=== PATIENT | female | born 1955 | race Caucasian/White ===

== ENCOUNTER → 2018-10-07 07:52 | Day surgery (SDC) | payer BC ==
[~2018-10-07 07:52] MED LIST: Buffered Lidocaine 1% SYRIN* 1 ML/SYRINGE INTRADERM ONE; Bupivacaine 0.5% SDV PF* 30ML VIAL ONE; Bupivacaine 0.5%* 50 ML VIAL ONE; Dexamethasone TAB* 4 MG ONE; Dexamethasone TAB* 4 MG PO ONE; DiMENhydriNATE IV* 50 MG/ML VIAL IV PUSH PRN; DiMENhydriNATE IV* 50 MG/ML VIAL ONE; Famotidine IV* 10 MG/ML 2 ML (20 mg) IV ONE; Famotidine IV* 10 MG/ML 2 ML (20 mg) ONE; HYDROmorphone INJ1* 1 MG/ML SYRINGE ONE; KETAMINE HCL* 50 MG/ML 10 ML VIAL ONE; Ketorolac INJ* 30 MG/ML 1 ML VIAL ONE; Lactated Ringers 1000 ML Bag* 1,000 ML IV SCH; Midazolam* 1 MG/ML 10 ML VIAL (10 MG) ONE; Naloxone* 0.4 MG/ML 1 ML VIAL IV PRN; Ondansetron ODT TAB* 4 MG ONE; Ondansetron TAB* 4 MG PO ONE; PROCHLORPERAZINE INJ 5 MG/ML 2 ML VIAL IV PRN; PROCHLORPERAZINE INJ 5 MG/ML 2 ML VIAL ONE; Propofol* 1,000 MG/100 ML BTL ONE; Propofol* 10 MG/ML 20 ML BTL ONE; Propofol* 500 MG/50 ML BTL ONE; Scopolamine 1.5 mg* PATCH ONE; Scopolamine 1.5 mg* PATCH TRANSDERM SCH; Scopolamine PATCH Remove* 1 NOTE MISC PATCH OFF SCH; ceFAZolin 2 GM PREMIX in ORs 2 GM/50 ML BAG IVPB ONE; fentaNYL* 50 MCG/ML 2 ML VIAL (100 MCG VIAL) IV PRN; fentaNYL* 50 MCG/ML 2 ML VIAL (100 MCG VIAL) ONE; oxyCODONE/Acetamin 5/325 MG* TAB ONE
[2018-10-07] MEDS: oxyCODONE/Acetamin 5/325 MG* TAB PO PRN (13:25)
[2018-10-07] MEDS: HYDROmorphone INJ1* 1 MG/ML SYRINGE IV PRN ×4 (13:28→14:30)
--- NOTE | 2018-10-07 13:51 | OP ---
Operative Report - Blank - Operative Report Date of Operation: 10/07/18 Note: PATIENT: Alicja Tovar DATE OF : 1955 DATE OF SURGERY: 10/07/2018 SURGEON: Reyes Botello MD MS [employer] SERV[employer] DEVELOPER: LORENZO Bell, whos assistance was necessary for positioning, retraction, help with instrumentation, and closure. ANESTHESIOLOGIST: Dr. 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 Right midfoot fusion of the 2nd TMT joint 2. Right Silver bunionectomy 3. Right 1st MTP joint fusion ANESTHESIA: General + block IMPLANTS: Arthrex staple, plate, 4.0mm cannulated screws TOURNIQUET TIME: Less than 2 hours with a well-padded thigh tourniquet at 250 mmHg SPECIMENS: none ESTIMATED BLOOD LOSS: minimal COMPLICATIONS: none STATUS: Stable from the operating room to the recovery room and then home. INDICATIONS FOR PROCEDURE: Alicja has had persistent, limiting pain from midfoot arthritis and an arthritic bunion. Both operative and non operative treatment alternatives were reviewed. Further, the nature and risks of surgery were reviewed in careful detail, in the office as well as the pre-operative holding area. Our discussions regarding the risks of surgery included, but were not limited to, infection, wound problems, nerve injury, neuroma, RSD, persistent symptoms, blood clot, fracture, nonunion, malunion, hardware pain, need for further surgery, persistent pain and symptoms, failure of the surgery, and even the remote chance of catastrophic complication. DESCRIPTION OF PROCEDURE: The patient was seen in the preoperative holding unit and informed written consent was obtained. The appropriate extremity was marked. The patient was then brought to the operating room and carefully positioned on the operating room table. Anesthesia was induced. All bony prominences were padded with great care. A well-padded thigh tourniquet was placed. A chlorhexidine based pre- scrub was performed followed by a chloraprep prep and drape in standard sterile fashion. A surgical safety pause was then conducted in which we confirmed the appropriate patient, extremity, planned procedure, availability of equipment, indication and administration of prophylactic antibiotics, and DVT prophylaxis in the form of a compression boot on the non-surgical extremity. We began with an Esmarch exsanguination of the limb and inflated the tourniquet. I utilized a longitudinal incision centered over the 1-2 TMT joint. Careful dissection was taken down to the level of the bones with care to protect the neurovascular bundle. The 2nd TMT joint was exposed in a subperiosteal manner. As expected, arthritis was encountered. The joint was exposed with the use of a laminar screen printing cloth spreader and Hintermann retractor. Remaining cartilage was removed. The joint was then prepared for fusion by using curettes, burrs, osteotomes, and a small drill bit. The joint was then reduced and fixation was placed with an Arthrex nitinol staple. Excellent compression across the joint was achieved. I then made an incision dorsally overlying the first MTP joint. I carried the dissection down through the soft tissue and mobilized the EHL tendon laterally. I then came sharply down to the level of the first MTP joint. I released around the medial aspects and lateral aspects of the joint to expose the metatarsal head and the base of the proximal phalanx. We had excellent visualization. There were extensive arthritic changes present. I then used a small oscillating saw to excise the medial eminence at the first metatarsal head, thus performing a Silver bunionectomy. I then prepared the 1st MTP joint for arthrodesis using the cup and cone reamers , followed by perforations with a K wire. There was healthy cancellous bone on both sides of the joint. This joint nicely reapproximated once we gained proper alignment. At this point, we used a flat plate to ensure that the hallux was not plantar flexed. I then placed two 4.0 mm cannulated screws, which held the toe well aligned, provided good compression, and had good purchase. This provided rigid fixation with well opposed bone. I then placed a dorsal first MTP plate and filled the screw holes. These had good purchase. Fluoroscopy was utilized to confirm the reduction and position of the hardware. Final fluoroscopic images were obtained. I then used the bone that was resected from the medial eminence to harvest cancellous bone graft. This was then packed at the dorsal edge of the second TMT joint, and also in any gaps at the first MTP joint. At this point, we irrigated copiously and then closed in layers meticulously utilizing 3-0 Monocryl and 3-0 nylon for the skin. A sterile dressing was then applied followed by a splint with the ankle in a neutral position. The patient was then awakened from anesthesia and transferred to the recovery room in stable condition. There were no complications. All needle and sponge counts were correct at the end of the case. ATTESTATION: I attest I was present and scrubbed and performed the critical portions of the procedure myself. POSTOPERATIVE PLAN: Follow up will be in 2 weeks for likely suture removal and postop x-rays. The postoperative plan is to be [id number] for 2 months.
[2018-10-07 15:09] VITALS: BP 143/62
== END | disposition home or self-care (01) ==
LOC: OR 07:52
PROVIDERS: ATTEND Orthopaedic Surgery
DX: M19.071 Primary osteoarthritis, right ankle and foot (principal); M20.21 Hallux rigidus, right foot; M20.11 Hallux valgus (acquired), right foot; G89.18 Other acute postprocedural pain; Z87.891 Personal history of nicotine dependence; E03.9 Hypothyroidism, unspecified; K21.9 Gastro-esophageal reflux disease without esophagitis
CPT/HCPCS: 76000; A9270-GY; C1713; C1776; J0690; J0780; J1170; J1240; J1885; J2250; J2704; J3010; J8540